=== PATIENT | female | born 1985 | race African-American/Black ===

== ENCOUNTER 2019-08-31 11:53 | Emergency (ER) | payer BC, SELFPAY ==
--- NOTE | ~2019-08-31 | CT_ITS ---
EXAMINATION: CT cervical spine wo con DATE: 08/31/2019 13:20 INDICATION: Neck pain TECHNIQUE: Computed tomography (CT) of the cervical spine was performed without intravenous contrast. The dose-length product (DLP) was 503.43 mGy-cm. Automated exposure control and iterative reconstruc tion technique were employed. COMPARISON: None FINDINGS: There is straightening of the cervical spine which can be positional or due to muscular spa sm. Bone alignment is normal. There is no fracture. The vertebral body heights are normal. The interv ertebral disc spaces are maintained. The odontoid is intact. A small right tracheal diverticulum is n oted. The prevertebral soft tissues are normal. IMPRESSION: 1. No acute osseous abnormality. Reviewed, dictated and finalized at location A. CUSTOMER DEVELOPMENT
[2019-08-31 12:42] VITALS: BP 130/61; PULSE 65; RESP 16; TEMP 36.9; O2SAT 99
[2019-08-31] MEDS: ACETAMINOPHEN 500 MG TABLET 1000 MG PO (13:47)
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
[2019-08-31 14:51] VITALS: BP 123/78; PULSE 68; RESP 16; O2SAT 99
== END 2019-08-31 14:52 | disposition home or self-care (01) ==
PROVIDERS: Emergency Provider Emergency Medicine; PCP Nurse Practitioner Family
DX: M54.2 Cervicalgia (principal); Z98.84 Bariatric surgery status; V49.40XA Driver injured in collision with unspecified motor vehicles in traffic accident, initial encounter
CPT/HCPCS: 72125; 99284; A9270

== ENCOUNTER → 2020-06-11 10:53 | Outpatient (CLI) | payer BC, SELFPAY ==
--- NOTE | ~2020-06-11 | US_ITS ---
EXAMINATION: US OB <= 14 weeks fetus DATE: 06/11/2020 11:12 INDICATION: Routine care during first trimester TECHNIQUE: Real-time pelvic ultrasound utilizing both a transvaginal and transabdominal probe was pe rformed. The interpreting radiologist was not present for the study. COMPARISON: None. FINDINGS: The uterus measures 11.6 x 7.4 x 7.7 cm. There is an intrauterine gestational sac. A yolk sac and fe violette pole are identified. The crown rump length measures 2.9 cm, which correlates with an estimated ge stational age of 9 weeks and 5 days. heart motion is identified measuring 168 beats per minute (bpm) by M-mode Doppler. There are 2 small nearly anechoic likely subchorionic hematomas measuring 1. 3 x 1.2 x 1.6 cm along the left side of the sac and 1.8 x 0.4 x 2.6 cm along the posterior margin. The right ovary measures 4.6 x 2.5 x 4.6 cm. The left ovary measures 2.5 x 2.4 x 3.4 cm. There is no free fluid in the pelvis. IMPRESSION: 1. Single living fetus with heart rate of 160 bpm. 2. Gestational age by ultrasound of 9 weeks 5 day(s) +/- 6 day(s) with ultrasound estimated date of delivery (LAWSON) of 01/09/2021. 3. A couple small subchorionic hematomas. Reviewed, dictated and finalized at location A. R LIAISON IMPRESSION: 1. Single living fetus with heart rate of 160 bpm. 2. Gestational age by ultrasound of 9 weeks 5 day(s) +/- 6 day(s) with ultraso und estimated date of delivery (LAWSON) of 01/09/2021. 3. A couple small subchorionic hematomas.
== END ==
PROVIDERS: Visit Provider Obstetrics & Gynecology
DX: Z34.91 Encounter for supervision of normal pregnancy, unspecified, first trimester (principal); Z3A.09 9 weeks gestation of pregnancy
CPT/HCPCS: 76801

== ENCOUNTER → 2020-07-11 10:56 | Outpatient (CLI) | payer BC, SELFPAY ==
--- NOTE | ~2020-07-11 | US_ITS ---
EXAMINATION: US OB follow up DATE: 07/11/2020 11:41 INDICATION: Cramping at the transition from the 1st-2nd trimester of . TECHNIQUE: Real-time ultrasound of the pelvis was performed. The interpreting radiologist was not pre sent for the study. COMPARISON: None. FINDINGS: The uterus measures 14.3 x 7.9 x 9.9 cm. There is a single living fetus in each presentation. The pl acenta is anterior and not low-lying with caudal margin 4.4 cm from the internal cervical os. h eart rate is 153 beats per minute (bpm). The amniotic fluid is subjectively normal. Previous subchori onic hematoma appears to have resolved. The following biometric data were obtained: BPD: 2.4 cm -> 14 weeks 1 days Head circumference: 9.8 cm -> 14 weeks 4 days Abdominal circumference: 7.6 cm -> 14 weeks 1 days Femur length: 1.1 cm -> 13 weeks 2 days Dolichocephaly with cephalic index of 68 (normal range 70-86). Head circumference to abdominal circumference ratio: 1.29 (normal range 1.10-1.35). Estimated weight: 83 g (+/-) 13 g. IMPRESSION: 1. Single living fetus in breech presentation with heart rate of 153 bpm. 2. Gestational age by ultrasound of 14 weeks 0 day(s) which is exactly concordant with ultrasound pre viously estimated date of delivery (LAWSON) of 01/09/2021. Estimated weight is 21st percentile by H adlock criteria when 01/09/2021 is used as the LAWSON. Please correlate with clinical information or sofia ier ultrasounds for most accurate LAWSON. 3. Dolichocephaly with cephalic index of 68. Reviewed, dictated and finalized at location A. IMEDIA DEVELOPER IMPRESSION: 1. Single living fetus in breech presentation with heart rate of 153 bpm. 2. Gestational age by ultrasound of 14 weeks 0 day(s) which is exactly concorda nt with ultrasound previously estimated date of delivery (LAWSON) of 01/09/2021. Es timated weight is 21st percentile by Hadlock criteria when 01/09/2021 is u sed as the LAWSON. Please correlate with clinical information or earlier ultrasoun ds for most accurate LAWSON. 3. Dolichocephaly with cephalic index of 68.
== END ==
PROVIDERS: Visit Provider Obstetrics & Gynecology
DX: Z34.91 Encounter for supervision of normal pregnancy, unspecified, first trimester (principal); Z3A.00 Weeks of gestation of pregnancy not specified
CPT/HCPCS: 76816

== ENCOUNTER → 2020-08-13 11:19 | Outpatient (CLI) | payer BC, SELFPAY ==
--- NOTE | ~2020-08-13 | US_ITS ---
EXAMINATION: US OB >= 14 weeks Fetus DATE: 08/13/2020 11:54 INDICATION: Second trimester anatomic survey TECHNIQUE: Real-time ultrasound of the pelvis was performed. COMPARISON: None. FINDINGS: There is a single living fetus in vertex presentation. The placenta is anterior and 5.1 cm from the i nternal cervical os. heart rate is 131 beats per minute (bpm). cardiac activity and feta l movement are noted. The amniotic fluid index is subjectively normal. The kidneys and outflow tracts of the heart are not well demonstrated. The following anatomy wa s identified as normal: 4 chamber heart 3 vessel cord cord insertion urinary bladder stomach spine diaphragm ventricles cisterna magna cerebellum The following biometric data were obtained: Biparietal diameter (BPD): 3.9 cm; head circumference (HC): 14.9 cm; abdominal circumference (AC): 13 .2 cm; femur length (FL): 2.8 cm. These measurements are concordant. Estimated weight is 251 g +/- 37 g, which correlates with the 43rd percentile when 01/09/2021 is used as estimated date of delivery. As single measurements, these parameters are each equal to the following estimated gestational ages w ith ranges of +/- 2 standard deviations: BPD: 18 weeks 1 days ( 16 weeks 6 days - 19 weeks 2 days). HC: 18 weeks 0 days ( 16 weeks 4 days - 19 weeks 4 days). AC: 18 weeks 5 days ( 16 weeks 5 days - 20 weeks 5 days). FL: 18 weeks 6 days ( 17 weeks 0 days - 20 weeks 4 days). estimated gestational age based solely on measurements from this exam is 18 weeks 3 days +/- 1 weeks 2 days. IMPRESSION: 1. Single living fetus in vertex presentation. 2. Estimated weight is 251 g +/- 37 g, which correlates with the 43rd percentile when 01/09/2021 is used as estimated date of delivery. 3. Kidneys and outflow tracts of the heart not demonstrated. Reviewed, dictated and finalized at location A. ERY BUILDER IMPRESSION: 1. Single living fetus in vertex presentation. 2. Estimated weight is 251 g +/- 37 g, which correlates with the 43rd per centile when 01/09/2021 is used as estimated date of delivery. 3. Kidneys and outflow tracts of the heart not demonstrated.
== END ==
PROVIDERS: Visit Provider Obstetrics & Gynecology
DX: Z34.92 Encounter for supervision of normal pregnancy, unspecified, second trimester (principal); Z3A.18 18 weeks gestation of pregnancy
CPT/HCPCS: 76805

== ENCOUNTER → 2020-10-24 10:31 | Outpatient (CLI) | payer BC, SELFPAY ==
--- NOTE | ~2020-10-24 | US_ITS ---
EXAMINATION: US OB follow up EXAM DATE: 10/24/2020 11:02 INDICATION: anatomy. . 3rd trimester. TECHNIQUE: Pelvic obstetrical transabdominal sonogram was performed by a technologist. There are mu ltiple grayscale and Doppler images available for interpretation. Comparison is made to prior examina tion from 08/13/2020. FINDINGS: There is a single fetus identified in breech presentation with a heart rate of 120 beats pe r minute. The placenta is located in the anterior position. There is no sonographic evidence of retr oplacental hemorrhage identified. The amniotic fluid index is 16.5 centimeters, which is normal. BIOMETRIC DATA: Biparietal diameter (BPD): 7.2 cm ----------------> 28 weeks 6 days. Head circumference (HC): 26.7 cm ----------------> 29 weeks 0 days. Abdominal circumference (AC): 23.4 cm ----------> 27 weeks 4 days. Femur length (FL): 5.1 cm --------------------------> 27 weeks 3 days. These measurements are concordant. HC/AC ratio is 1.14 (The 5th -- 95th percentile range is 1.01-1.21. Estimated weight is 1130 g +/- 169 g. This is the 8th percentile when the currently reported c linical gestation age 29 weeks 0 days, clinical estimated date of delivery (LAWSON-OPE) 01/09 is used. Fe violette estimated gestational age based on measurements from this exam is 28 weeks 2 days, with an estima ojse date of delivery (LAWSON-AUA) 01/14. On this examination, both kidneys were confirmed sonographically normal. Additionally, four-chamber h eart and outflow tracts with sonographic normal appearance. This completes the anatomic survey. IMPRESSION: 1. Single fetus in breech presentation with heart rate 120 beats per minute. 2. Estimated weight of 1130 grams, 8th percentile using the currently reported clinical gestat ion age of 29 weeks 0 days, LAWSON(OPE) 01/09. 3. Sonographically normal kidneys and heart. Reviewed, dictated and finalized at location A. IMPRESSION: 1. Single fetus in breech presentation with heart rate 120 beats per minute. 2. Estimated weight of 1130 grams, 8th percentile using the currently re ported clinical gestation age of 29 weeks 0 days, LAWSON(OPE) 01/09. 3. Sonographically normal kidneys and heart.
== END ==
PROVIDERS: Visit Provider Obstetrics & Gynecology
DX: Z33.1 Pregnant state, incidental (principal); Z3A.28 28 weeks gestation of pregnancy
CPT/HCPCS: 76816

== ENCOUNTER 2023-04-20 08:04 | Emergency (ER) | payer OTHER, SELFPAY ==
--- NOTE | ~2023-04-20 | CT_ITS ---
EXAMINATION: CT cervical spine wo con DATE: 04/20/2023 08:33 INDICATION: Neck pain TECHNIQUE: Computed tomography (CT) of the cervical spine was performed without intravenous contrast. The dose-length product (DLP) was 500.17 mGy-cm. Automated exposure control and iterative reconstruc tion technique were employed. COMPARISON: 08/31/2019 FINDINGS: No fracture, dislocation, or subluxation. The vertebral body heights, alignment, and interv ertebral disc spaces are normal. The paravertebral soft tissues are unremarkable. The odontoid proces s is intact. A small right tracheal diverticulum is again noted. IMPRESSION: 1. No acute osseous abnormality. Reviewed, dictated and finalized at location B.
--- NOTE | ~2023-04-20 | CT_ITS ---
EXAMINATION: CT brain wo con INDICATION: Headache COMPARISON: None TECHNIQUE: Standard unenhanced head CT. The dose-length product (DLP) was 605.33 mGy-cm. The mA was a djusted according to patient size. Iterative reconstruction technique was employed. FINDINGS: No intracranial hemorrhage, acute infarction, or abnormal mass lesion. The ventricles are n ormal. No abnormal mass effect or midline shift. The velasco-white matter differentiation is normal. The basal cisterns are patent. The orbits are normal. There is mild mucosal thickening of the paranasal sinuses. IMPRESSION: 1. No acute intracranial abnormality. Reviewed, dictated and finalized at location B.
[2023-04-20 08:09] VITALS: BP 125/86; PULSE 65; RESP 20; TEMP 36.6; O2SAT 99
--- NOTE | 2023-04-20 08:31 | PC.NURSE ---
Pt to CT scan via stretcher at this time.
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
[2023-04-20] MEDS: NAPROXEN SODIUM 220 MG TABLET PO (09:18)
[2023-04-20] MEDS: ACETAMINOPHEN 325 MG TABLET 650 MG PO (09:18)
== END 2023-04-20 09:20 | disposition home or self-care (01) ==
PROVIDERS: Emergency Provider Emergency Medicine
DX: S16.1XXA Strain of muscle, fascia and tendon at neck level, initial encounter (principal); S60.511A Abrasion of right hand, initial encounter; S89.92XA Unspecified injury of left lower leg, initial encounter; S89.91XA Unspecified injury of right lower leg, initial encounter; K59.09 Other constipation; Z98.84 Bariatric surgery status; V44.5XXA Car driver injured in collision with heavy transport vehicle or bus in traffic accident, initial encounter
CPT/HCPCS: 70450; 72125; 99284; A9270

== ENCOUNTER 2023-05-31 09:28 | Outpatient (CLI) | payer BC, OTHER, SELFPAY ==
[2023-05-31 09:58] LABS: Hematocrit 29.5 % (37.0-47.0); Hemoglobin 8.6 g/dL (12.0-15.0); Mean Corpuscular HGB Conc 29.2 g/dl (32-36); Mean Corpuscular Hemoglobin 22.6 pg (26-34); Mean Corpuscular Volume 77.6 fl (80-100); Mean Platelet Volume 10.7 fl (7.4-10.4); Platelet Count Result 297 k/mm3 (150-375); Red Cell Distribution Width 15.3 % (11.5-14.5); White Blood Count 6.8 K/mm3 (4.5-10.0)
[2023-05-31 13:42] LABS: Iron 37 ug/dL (37-170)
[2023-05-31 13:52] LABS: Percent Iron Saturation 8 % (20-50)
[2023-05-31 14:50] LABS: Folic Acid 5.5 ng/mL (2.76->20)
== END 2023-05-31 09:29 | disposition home or self-care (01) ==
PROVIDERS: Visit Provider Internal Medicine Hematology & Oncology
DX: D64.9 Anemia, unspecified (principal)
CPT/HCPCS: 36415; 82607; 82728; 82746; 83540; 83550; 85027